=== PATIENT | male | born 1965 ===

== ENCOUNTER → 2020-06-07 10:46 | Outpatient (BNVA) | payer OTHER, SELFPAY | PROVIDERS: PCP Family Medicine; Referring Provider Family Medicine; Visit Provider Nurse Practitioner Family | DX: Z76.89 Persons encountering health services in other specified circumstances (principal) ==

== ENCOUNTER 2020-07-24 08:28 | Outpatient (REF) | payer OTHER, SELFPAY | END 2020-07-24 08:29 | disposition home or self-care (01) | LOC: HO.LAB 08:28 | PROVIDERS: Visit Provider Internal Medicine | DX: Z20.828 Contact with and (suspected) exposure to other viral communicable diseases (principal) | CPT/HCPCS: C9803; U0003 ==

== ENCOUNTER 2020-12-18 16:54 | Emergency (ER) | payer OTHER, SELFPAY ==
[2020-12-18 17:38] VITALS: BP 166/80; PULSE 88; RESP 16; TEMP 36.2; O2SAT 98; BMI 25.7
--- NOTE | 2020-12-18 19:35 | ED.GENADULT ---
HPI - General Adult General Chief complaint: Extremity Injury, Lower Stated complaint: FEET SWELLING Time Seen by Provider: 12/18/20 19:27 Source: patient Mode of arrival: ambulatory Limitations: no limitations History of Present Illness HPI narrative: Patient notices erythematous rash with slight swelling right lower extremity for last 2 weeks spreading to left lower extremity now. No history of any allergies in the past no fever or chills no hematuria bleeding from any place no history of injury Related Data Home Medications Medication Instructions Recorded Confirmed buprenorphine 8 mg-naloxone 2 mg 20 mg SUBLINGUAL DAILY 06/07/20 06/07/20 sublingual film naproxen 500 mg tablet 500 mg PO BID PRN 06/07/20 06/07/20 Previous Rx's Medication Instructions Recorded aspirin 81 mg tablet,delayed 81 mg PO DAILY #90 tab 06/07/20 release isosorbide mononitrate 60 mg 60 mg PO DAILY #90 tab 06/07/20 tablet,extended release 24 hr amlodipine 10 mg tablet 10 mg PO DAILY #90 tab 12/04/20 atorvastatin 80 mg tablet 80 mg PO BEDTIME 90 Days #90 tab 12/04/20 diphenhydramine HCl [Benadryl] 25 mg PO Q6H PRN #20 cap 12/18/20 prednisone 40 mg PO DAILY #10 tab 12/18/20 Allergies Allergy/AdvReac Type Severity Reaction Status Date / Time No Known Allergies Allergy Unverified 05/09/20 15:24 [No Known Allergies*] N.K.D.A. Allergy Unknown Uncoded 12/15/17 00:00 Review of Systems Review of Systems: Yes all other systems are reviewed and are negative [facility] Past Medical History Medical History CAD (coronary artery disease) HLD (hyperlipidemia) HTN (hypertension) Substance abuse or dependence Surgical History History of surgery on arm Hx of cardiac cath (~2017) Hx of colonoscopy (~2015) Family History Family History Father CVD (cardiovascular disease) Mother Diabetes Sister Diabetes Social History Social History Alcohol intake: never Smoking Status: Never smoker Tobacco Type: Cigarette Smoked in Last 30 Days: No Use of substances other than those prescribed or required for medical reasons: No Advance Directives: No Advance Directives Information Provided: Yes Physical Exam Vital Signs: Vital Signs: Last Vital Signs Temp 98.3 F 12/18/20 20:00 Pulse 75 12/18/20 20:00 Resp 16 12/18/20 20:00 BP 161/85 H 12/18/20 20:00 Pulse Ox 99 12/18/20 20:00 Body Mass Index 25.7 Const: General: healthy appearing and comfortable Orientation/consciousness: patient oriented x3 HENMT: Head: Yes normal to inspection and Yes normocephalic Eyes: General: appearance normal, both eyes and all related structures Neck: Neck: Yes normal visual inspection Resp: Effort & Inspection: normal respiratory effort Auscultation: clear to auscultation bilaterally Cardio: Palpation: normal PMI Rate: regular rate Rhythm: regular rhythm Heart sounds: S1 normal heart sound present and S2 normal heart sound present GI: Inspection: Yes normal to inspection Palpation (GI): Soft to palpation and nontender Auscultation: normal bowel sounds Neuro: General: patient oriented x3 Extrem: Upper/lower leg/hip images: 1. Erythematous rash right lower leg area no vesicular no open wound 2. Slight erythematous rash on the left leg also Medical Decision Making MDM Narrative Medical decision making narrative: Rash clinically contact dermatitis with local inflammation lab workup is negative will discharge patient home prednisone and Benadryl Lab Data Result diagrams: 12/18/20 20:22 12/18/20 20:22 Labs: Lab Results 12/18/20 12/18/20 12/18/20 Range/Units 20:22 20:22 20:22 WBC 7.6 (4.8-10.8) X10*3/uL RBC 4.63 (4.60-5.80) X10*6/uL Hgb 14.7 (14.0-18.0) g/dl Hct 41.0 L (42-52) % MCV 88.6 (80-98) fL MCH 31.7 (27.0-33.0) pg MCHC 35.9 (31.0-36.0) g/dl RDW 12.4 (11.0-16.0) % Plt Count 248 (160-400) X10*3/uL MPV 9.4 (9.4-12.4) fL Immature Gran % (Auto) 0.8 H (0.0-0.4) % Neut % (Auto) 61.7 (45-73) % Lymph % (Auto) 28.7 (20-40) % [place] % (Auto) 6.2 (2-11) % Eos % (Auto) 1.7 (0-4) % Baso % (Auto) 0.9 (0-2) % Lymph # (Auto) 2.2 (1.2-4.9) X10*3/uL [place] # (Auto) 0.5 (0.1-1.2) X10*3/uL Eos # (Auto) 0.1 (0.0-0.4) X10*3/uL Baso # (Auto) 0.1 (0.0-0.2) X10*3/uL Abs Immat Gran (auto) 0.06 H (0.00-0.03) X10*3/uL Absolute Neuts (auto) 4.7 (2.0-8.3) X10*3/uL Absolute Nucleated RBC 0.000 (0.0-0.012) X10*3/uL Nucleated RBC % (auto) 0.0 (0.0-0.2) /100WBC PT 12.5 (10.8-13.0) SEC INR 1.1 (0.9-1.1) APTT 36.3 (24.1-38.0) SEC Sodium 138 (135-145) mmol/L Potassium 4.1 (3.3-5.1) mmol/L Chloride 104 (96-108) mmol/L Carbon Dioxide 24 (22-29) mmol/L Anion Gap 14 (12-20) BUN 20 H (9-16) mg/dL Creatinine 1.09 (0.5-1.4) mg/dL Estim Creat Clear Calc 65.8 Estimated GFR > 60 Random Glucose 114 (60-115) mg/dL Calcium 9.9 (8.4-10.2) mg/dL B-Natriuretic Peptide (<100) pg/mL 12/18/20 Range/Units 20:22 WBC (4.8-10.8) X10*3/uL RBC (4.60-5.80) X10*6/uL Hgb (14.0-18.0) g/dl Hct (42-52) % MCV (80-98) fL MCH (27.0-33.0) pg MCHC (31.0-36.0) g/dl RDW (11.0-16.0) % Plt Count (160-400) X10*3/uL MPV (9.4-12.4) fL Immature Gran % (Auto) (0.0-0.4) % Neut % (Auto) (45-73) % Lymph % (Auto) (20-40) % [place] % (Auto) (2-11) % Eos % (Auto) (0-4) % Baso % (Auto) (0-2) % Lymph # (Auto) (1.2-4.9) X10*3/uL [place] # (Auto) (0.1-1.2) X10*3/uL Eos # (Auto) (0.0-0.4) X10*3/uL Baso # (Auto) (0.0-0.2) X10*3/uL Abs Immat Gran (auto) (0.00-0.03) X10*3/uL Absolute Neuts (auto) (2.0-8.3) X10*3/uL Absolute Nucleated RBC (0.0-0.012) X10*3/uL Nucleated RBC % (auto) (0.0-0.2) /100WBC PT (10.8-13.0) SEC INR (0.9-1.1) APTT (24.1-38.0) SEC Sodium (135-145) mmol/L Potassium (3.3-5.1) mmol/L Chloride (96-108) mmol/L Carbon Dioxide (22-29) mmol/L Anion Gap (12-20) BUN (9-16) mg/dL Creatinine (0.5-1.4) mg/dL Estim Creat Clear Calc Estimated GFR Random Glucose (60-115) mg/dL Calcium (8.4-10.2) mg/dL B-Natriuretic Peptide < 10 (<100) pg/mL Discharge Plan Discharge Clinical Impression: Dermatitis Patient Disposition: Home, Self-Care Instructions: Dermatitis (ED) Additional Instructions: Take medication as advised. Follow with PCP if not better Prescriptions: New prednisone 20 mg tablet 40 mg PO DAILY Qty: 10 RF: 0 diphenhydramine HCl [Benadryl] 25 mg capsule 25 mg PO Q6H PRN (Reason: itching) Qty: 20 RF: 0 No Action amlodipine 10 mg tablet 10 mg PO DAILY Qty: 90 RF: 1 atorvastatin 80 mg tablet 80 mg PO BEDTIME 90 Days Qty: 90 RF: 3 naproxen 500 mg tablet 500 mg PO BID PRNRF: 0 buprenorphine-naloxone 8-2 mg film 20 mg sublingual DAILY RF: 0 aspirin 81 mg tablet,delayed release (DR/EC) 81 mg PO DAILY Qty: 90 RF: 3 isosorbide mononitrate 60 mg tablet extended release 24 hr 60 mg PO DAILY Qty: 90 RF: 3 Interventions: ED Discharge Assessment Last Done: 12/18/20 21:46 Discharge Date/Time: 12/18/20 21:47
[2020-12-18 20:00] VITALS: BP 161/85; PULSE 75; RESP 16; TEMP 36.8; O2SAT 99
[2020-12-18 20:28] LABS: MANUAL DIFF FLAG NO
[2020-12-18 20:34] LABS: Basophils Absolute Auto 0.1 X10*3/uL (0.0-0.2); Basophils Percent Auto 0.9 % (0-2); Eosinophils Absolute Auto 0.1 X10*3/uL (0.0-0.4); Eosinophils Percent Auto 1.7 % (0-4); Hemoglobin 14.7 g/dl (14.0-18.0); Imm Gran Abs Auto 0.06 X10*3/uL (0.00-0.03); Imm Gran Pct Auto 0.8 % (0.0-0.4); Lymphocytes Absolute Auto 2.2 X10*3/uL (1.2-4.9); Lymphocytes Percent Auto 28.7 % (20-40); Mean Corpuscular HGB Conc 35.9 g/dl (31.0-36.0); Mean Corpuscular Hemoglobin 31.7 pg (27.0-33.0); Mean Corpuscular Volume 88.6 fL (80-98); Mean Platelet Volume 9.4 fL (9.4-12.4); Monocytes Absolute Auto 0.5 X10*3/uL (0.1-1.2); Monocytes Percent Auto 6.2 % (2-11); Neutrophils Absolute Auto 4.7 X10*3/uL (2.0-8.3); Neutrophils Percent Auto 61.7 % (45-73); Platelet Count 248 X10*3/uL (160-400); Red Blood Count 4.63 X10*6/uL (4.60-5.80); Red Cell Distribution Width 12.4 % (11.0-16.0); White Blood Count 7.6 X10*3/uL (4.8-10.8)
[2020-12-18 20:40] LABS: INTERNATIONAL NORM RATIO 1.1 (0.9-1.1); Prothrombin Time 12.5 SEC (10.8-13.0)
[2020-12-18 20:43] LABS: Partial Thromboplastin Time 36.3 SEC (24.1-38.0)
[2020-12-18 20:57] LABS: Anion Gap 14 (12-20); Blood Urea Nitrogen 20 mg/dL (9-16); Calcium 9.9 mg/dL (8.4-10.2); Carbon Dioxide 24 mmol/L (22-29); Chloride 104 mmol/L (96-108); Creatinine Clr Calc Pharmacy 65.8; Estimated Glomerular Filt Rate > 60; Glucose Random 114 mg/dL (60-115); Potassium 4.1 mmol/L (3.3-5.1); Sodium 138 mmol/L (135-145)
[2020-12-18 21:04] LABS: B Type Natriuretic Peptide < 10 pg/mL (<100)
[2020-12-18] MEDS: diphenhydrAMINE HCL 25 MG TABLET PO (21:19)
[2020-12-18] MEDS: predniSONE 20 MG TABLET 40 MG PO (21:19)
--- NOTE | 2020-12-18 21:20 | PC.NURSE ---
Medicated per OCT. Pt sitting upright on bed with family in NAD, speaking full sentences. Pt requesting discharge home at this time, aware. Continue to monitor.
== END 2020-12-18 21:47 | disposition home or self-care (01) ==
PROVIDERS: Emergency Provider Internal Medicine
DX: L30.9 Dermatitis, unspecified (principal); R60.0 Localized edema; Z79.899 Other long term (current) drug therapy; Z79.82 Long term (current) use of aspirin
CPT/HCPCS: 36415; 80048; 83880; 85025; 85610; 85730; 99284; Q0163

== ENCOUNTER 2024-10-06 10:00 | Outpatient (AMB) | payer OTHER, SELFPAY ==
--- NOTE | 2024-10-06 10:01 | A.OFFVIS_ITS ---
Vital Signs 10/06/24 10:13 Height 5 ft 5 in Weight 171 lb 15.369 oz BMI 28.6 BP 156/70 H Blood Pressure Location Rt brachial Position Sitting Pulse 74 Pulse Source Pulse Oximeter Pulse Oximetry (%) 96 Oxygen Delivery Method Room Air Intake Visit Reasons: Colonoscopy Screening Intake Note: NEW PATIENT for repeat colo screening. Routine. 2nd lifetime. Prior hx of colo/egd? [address] Ellis. Chief Complaint; Pt denies any GI concerns at this time. Correctional Medicine Physician Required: No Accompanied by: Self / Same As Patient Allergies No Known Allergies [No Known Allergies*] Allergy (Unverified 10/06/24 10:02) HPI HPI Colonoscopy Screening: Details: 58 year old? male with past medical history of CAD, hyperlipidemia, hypertension, hep C is here today for pre colonoscopy screening.? Patient was sent to us by his PCP.? Last colonoscopy in November of [address] Ellis.? Patient had stent placed in 2018, denies any shortness of breath with or without exertion or any chest pressure. Patient had rotator cuff surgery few months ago and did well with anesthesia. Patient denies any gastrointestinal symptoms in the past or at present.? Denies any personal or family history of gastrointestinal disease, colon polyps, or CRC.? Denies history of difficulty with sedation or anesthesia in the past.? Negative for history of sleep apnea.? Denies any history of cardiac, renal, pulmonary, or hepatic disease.?? History of hepatitis C, treated. Patient is on low-dose aspirin PFSH Medical History Substance abuse or dependence HTN (hypertension) HLD (hyperlipidemia) CAD (coronary artery disease) Surgical History History of rotator cuff surgery (~06/01/24) Hx of colonoscopy (~2015) History of surgery on arm Hx of cardiac cath (~2017) Family History Father CVD (cardiovascular disease) Mother Diabetes Sister Diabetes Social History Alcohol intake: never Review of Systems Const Denies weight gain and Denies weight loss ENT Reports no additional complaints, Denies dysphagia and Denies odynophagia Card Reports no additional complaints Resp Reports no additional complaints GI Denies abdominal pain, Denies belching, Denies melena, Denies bloating, Denies change in bowel habits, Denies dysphagia, Denies excessive flatus, Denies dyspepsia, Denies heartburn, Denies diarrhea, Denies loose stools, Denies nausea, Denies odynophagia and Denies vomiting Reports no additional complaints Musc Reports no additional complaints Neuro Reports no additional complaints Psych Reports no additional complaints Endo Reports no additional complaints Physical Exam Const General: healthy appearing, no acute distress and well developed Nutritional Appearance: well nourished Orientation/consciousness: patient oriented x3 Resp Effort & Inspection: normal respiratory effort, able to speak in complete sentences, no tracheal deviation and symmetric chest movement Auscultation: clear to auscultation bilaterally Cardio Rate: regular rate GI Inspection: Yes normal to inspection and No distended Palpation (GI): Soft to palpation, not firm, nontender and No hepatosplenomegaly present Auscultation: normal bowel sounds General: Yes no CVA tenderness Back/Spine/Pelvis Back: no CVA tenderness Skin General skin exam: elasticity normal, turgor normal and dry skin Neuro General: patient oriented x3 Psych Appearance: grossly normal Mental Status: mental status grossly normal Assessment & Plan Assessment & Plan (1) Screen for colon cancer: Code(s): Z12.11 - Encounter for screening for malignant neoplasm of colon Plan Patient denies any GI, cardiac or respiratory symptoms.? Denies any issues with anesthesia in the past.? Denies any history of sleep apnea.? No history infectious diseases in the past or present.? On low-dose aspirin.? No family or personal history of colon cancer or polyps.? Patient denies melena, hematochezia, unintentional weight loss or ribbon like stools.? Discussed at length the pre-procedure,? prep, diet & medications as well as what to expect prior, during and after the procedure.?? Stressed the importance of good bowel prep.? Recommended the use of Vaseline or Calmoseptine OTC & baby wipes with bowel movements to promote comfort.? ?Patient verbalizes understanding and agrees to plan of care.? He was given the opportunity to ask questions and all questions answered.? We will see him after the procedure.? Medications: New bisacodyl (Dulcolax (bisacodyl)) take 4 tabs at noon the day before your colonoscopy 20 mg (4 x 5 mg) PO ONCE 1 day 4 tabs 0RF Z12.11 - Encounter for screening for malignant neoplasm of colon polyethylene glycol 3350 (Miralax) As directed by gastroenterology department at [facility] 238 grams PO ONCE 238 grams 0RF Z12.11 - Encounter for screening for malignant neoplasm of colon Coding Level of Care Code New Pt Level 3 (02460) Diagnoses Screen for colon cancer Z12.11 Time Spent (min) 40 Comment 30 minutes spent with patient and additional 10 minutes spent reviewing his records
[2024-10-06 10:13] VITALS: BP 156/70; PULSE 74; O2SAT 96; BMI 28.6
--- OUTSIDE RECORDS SUMMARY | 2024-10-06 10:42 | XMS_ITS | Encounter Summary ---
Author Organization [facility] Address [address] [place] [address] Care Team Providers Care Field Sales Representative Name Role Phone Julia Mcdaniel Primary Care Provider + Reason for Visit * Rehabilitation - Outpatient (Routine) - Authorized Specialty Diagnoses / Procedures Referred By Renata aguilar Referred To Contact Occupational Therapy Diagnoses S/P left rotator cuff repair Farrukh Rider MD [address] [facility] [address] [place] [address] Phone: tel: fax: Referral ID Status Reason Start Date Expiration Date Visits Requested Visits Authorized [id number] Authorized Specialty Services Required 06/13/2025 21 21 Encounter Details Date Type Department Care Team (Late st Contact Info) Description 10/03/2024 11:15 AM EST [facility] [address] [facility] [address] [place] [phone] Hung Lamar, OT S/P left rotator cuff repair (Primary Dx) Social History Tobacco Use Types Packs/Day Years Used Date Smoking Tobacco: Former Cigarettes Q uit: 08/23/2018 Smokeless Tobacco: Never Alcohol Use Standard Drinks/Week Comments Yes 0 (1 standard drink = 0.6 oz pur e alcohol) Sex and Gender Information Value Date Recorded Sex Assigned at Not on file Legal Sex Male 11:14 PM EST Gender Identity Not on file Sexual Orientation Not on file documented as of this encounter Progress Notes * Hung Lamar OT - 10/03/2024 11:15 AM EST [facility] - Outpatient OCCUPATIONAL THERAPY DAILY TREATMENT NOTE Date: 10/03/2024 Visit Number: [id number] Patient Name: Clifford Yang : 1965 Age: 58 y.o. Gender: male Diagnosis: ICD-10-CM ICD-9-CM 1. S/P left rotator cuff repair Z98.890 V45.89 Date of Onset: 06/01/2024 Referring Provider: Farrukh Rider MD Insurance: [place] / [place] HEALTH SAFETY [place] / Product Type: *No Producttype* / Language: Speaks and understands Indonesian as preferred language with no technical maintenance specialist required Allergies: has No Known Allergies. Precautions: Phase 4 09/07/24 - 09/21/24 begin light resistance SUBJECTIVE Subjective Report: Its ok Pain: L sh 5/10 OBJECTIVE Pt able to manage personal items MOD I TREATMENT INTERVENTION Procedures: Pt performed L sh flexion standing with back to wall. Sidelying for scap mobs. Sidelying ER AROM Sh abd AROM in sidelying 10 reps AROM limited at end range, pt performed B sh flex in supine to increase range. Seated AROM B sh scaption. Standing B sh abd AROM . IR/ER with level 1 theraband. Hughstons on incline bench at approx 45* 2 X 10 reps Pain Reassessment: unchanged 5/10 Assessment/Response To Treatment: Good No increase in pain with therex Patient Education: Education provided: Yes Education Provided To: Patient utilizing Explanation and Demonstration mode(s) of education Response to Education: Good PLAN POC Development/Review: No Change in the Plan of Care; Participants: Patient Total Treatment Time: 45 Documentation completed by Hung Lamar OT documented in this encounter Plan of Treatment Upcoming Encounters Date Type Department Care Team (Late st Contact Info) Description 10/10/2024 1:15 PM EST Treatment [facility] Occupational Therapy [address] [place] [phone] Vanessa Adler COTA/L 10/12/2024 9:00 AM EST Treatment [facility] [address] [facility] [address] [place] [phone] FrancoisVanessa golden COTA/Barry 10/17/2024 11:00 AM EST Treatment [facility] [address] [facility] [address] [place] [phone] Vanessa Adler GAMBOA/L 10/19/2024 10:15 AM EST Treatment [facility] Occupational Therapy [address] [phone] Hung Lamar, OT 10/25/2024 11:00 AM EST Office Visit Internal Medicine - [place] [facility] [address] [place] [phone] Julia Mcdaniel PA [address] [facility] [address] [place] [address] 11/29/2024 11:30 AM EDT Office Visit Orthopedic Surgery - [place] 160 [facility] [address] [place] [phone] Farrukh Rider MD [address] [facility] [address] [place] [address] documented as of this encounter Goals Goal Patient Goal Type Associated Problems Recent Progress Patient-Stated? Author Pt goal General On track( 1:32 PM EST) Yes Hung Lamar, OT Note: I want to be pain free STG 6-8 visits General On track( 12:45 PM EST) No Hung Lamar, OT Note: Pt will report pain in L sh <= 4/10 - Not met, pt having increased pain Pt to have scaption PROM >= 85 deg for increased ease of bathing - Met Pt to begin strengthening as per protocol- performing A/AROM, progressing Pt to perform initial HEP MOD I - Met Pt to have QD score <= 80 - Met Pt will demo L sh scaption A/AROM 125 for increased ease of dressing - Met Pt will perform upgraded HEP MOD I - Met Pt will report QD score <= 75 - Not met Pt will perform HEP, as it progresses MOD I LTG 20 visits General On track( 025 1:32 PM EST) Hung Méndez, OT Note: Pt will report pain in L sh <= 1/10 Pt to have AROM sh flex WFL to perform ADLs/IADLs Pt to have >= 40# graphic artist to be able to perform yard work Pt to perform HEP MOD I Pt will demo improved fx'l use as evidenced by a QD score of <= 30 to be able to cook documented as of this encounter Visit Diagnoses Diagnosis S/P left rotator cuff repair- Primary documented in this encounter Care Teams Field Sales Representative Relationship Specialty Start Date End Date Julia Mcdaniel PA [address] [place] [address] PCP - General Primary Care 07/03/24 documented as of this encounter
--- OUTSIDE RECORDS SUMMARY | 2024-10-06 10:42 | XMS_ITS | Encounter Summary ---
Author Organization [employer] Address [address] [place] [address] [address] [place] [address] Care Team Providers Care Software Systems Engineer Name Role Phone Roger Paul Primary Care Provider Unavail able Reason for Visit * Reason Comments Med Refill Encounter Details Date Type Department Care Team ([facility] st Contact Info) Description 02/08/2023 Refill [facility] MEDICINE [address] [place] [address] Kaela Lam MD [address] [place] [address] Uncomplicated opioid dependence (CMS/HCC) Social History Tobacco Use Types Packs/Day Years Used Date Smoking Tobacco: Every Day Cigarettes Sex and Gender Information Value Date Recorded Sex Assigned at Male 06/22/2022 10:14 AM EDT Legal Sex Male 10:14 AM EDT Gender Identity Male 06/22/2022 10:14 AM EDT Sexual Orientation Straight 06/22/2022 10 :14 AM EDT documented as of this encounter Plan of Treatment Not on file documented as of this encounter Visit Diagnoses Diagnosis Uncomplicated opioid dependence (CMS/HCC) documented in this encounter Care Teams Software Systems Engineer Relationship Specialty Start Date End Date Roger Paul AGNP PCP - General Family Medicine 06/02/22 04/28/23 documented as of this encounter
--- OUTSIDE RECORDS SUMMARY | 2024-10-06 10:42 | XMS_ITS | Encounter Summary ---
Author Organization [facility] Address [address] [place] [address] Care Team Providers Care Marine Painter Name Role Phone Julia Mcdaniel Primary Care Provider + Reason for Visit * Rehabilitation - Outpatient (Routine) - Authorized Specialty Diagnoses / Procedures Referred By Renata aguilar Referred To Contact Occupational Therapy Diagnoses S/P left rotator cuff repair Farrukh Rider MD 175 [facility] [address] [place] [address] Phone: tel: fax: Referral ID Status Reason Start Date Expiration Date Visits Requested Visits Authorized [id number] Authorized Specialty Services Required 06/13/2025 21 21 Encounter Details Date Type Department Care Team (Late st Contact Info) Description 09/19/2024 12:30 PM EST [facility] 175 [facility] [address] [place] [address] Hung Lamar, OT S/P left rotator cuff [...] of this encounter Progress Notes * Hung Lamar, OT - 09/19/2024 12:30 PM EST Images from the original note were not included. [facility] - Outpatient OCCUPATIONAL THERAPY Progress Summary Date: 09/19/2024 Visit Number: 11 Patient Name: Clifford Yang : 1965 Age: 58 y.o. Gender: male Diagnosis: ICD-10-CM ICD-9-CM 1. S/P left rotator cuff repair Z98.890 V45.89 Date of Onset: 06/01/2024 Referring Provider: Farrukh Rider MD Insurance: Payor: [employer] PLAN / Plan: WELLSENSE MEDICAID / Product Type: *No Product type* / Language: Speaks and understands Malagasy as preferred language with no csr technician required Medications: Current Outpatient Medications on File Prior to Visit Medication Sig Dispense Refill acetaminophen (TYLENOL) 500 mg tablet Take 1 Tablet by mouth every 6 hours as needed. amLODIPine (NORVASC) 10 mg tablet TAKE 1 TABLET BY MOUTH EVERY DAY aspirin 81 mg chewable tablet CHEW 1 TABLET BY MOUTH EVERY DAY atorvastatin (LIPITOR) 80 mg tablet TAKE 1 TABLET BY MOUTH EVERY DAY 90 tablet 3 cholecalciferol (VITAMIN D-3) 50 mcg (2,000 unit) capsule TAKE 1 CAPSULE BY MOUTH EVERY DAY ibuprofen (ADVIL,MOTRIN) 800 mg tablet Take 1 Tablet by mouth every 8 hours as needed. isosorbide mononitrate (IMDUR) 60 mg 24 hr tablet TAKE 1 TABLET BY MOUTH EVERY DAY 90 tablet 2 losartan-hydroCHLOROthiazide (HYZAAR) 50-12.5 mg per tablet Take 1 Tablet by mouth daily for 360 days. meloxicam (MOBIC) 15 mg tablet Take 1 tablet (15 mg total) by mouth 1 (one) time each day. (Patientnot taking: Reported on 08/02/2024) 30 tablet 2 oxyCODONE-acetaminophen (PERCOCET) 5-325 mg per tablet Take 1 Tablet by mouth every 4 hours as needed. (Patient not taking: Reported on 08/02/2024) No current facility-administered medications on file prior to visit. Allergies: has No Known Allergies. Precautions: Phase 4 09/07/24 - 09/21/24 begin light resistance SUBJECTIVE Subjective Report: I use heat every other day Pain: L sh and down upper arm 5/10 OBJECTIVE OT Shoulder ROM: Right Left AROM PROM SHOULDER AROM PROM WNL WNL Flexion 115 125 WNL WNL Scaption 120 130 WNL WNL Abduction 115 125 External 10 20 Rotation OT Elbow/forearm ROM Right Left AROM PROM ELBOW/ FOREARM AROM PROM WNL WNL Extension WNL WNL WNL WNL Flexion WNL WNL WNL WNL Pronation WNL WNL WNL WNL Supination WNL WNL OT Wrist ROM Right Left AROM PROM WRIST AROM PROM WNL WNL Extension WNL WNL WNL WNL Flexion WNL WNL Other Assessments: QuickDASH - Disability of Arm, Shoulder, or Hand Rate your ability to do the following activities in the past week: Open a tight or new jar: 5 - Unable Do heavy librarian (eg wash augustine, wash floors) : 4 - Severe difficulty Carry a shopping bag or briefcase : 5 - Unable Wash your back : 5 - Unable Use a knife to cut food: 4 - Severe difficulty Recreational activities in which you take some force or impact through your arm, shoulder or hand (eg golf, hammering, tennis, etc) : 5 - Unable During the past week, to what extent has your arm, shoulder or hand problem interfered with your normal social activities with family, friends, neighbours or groups? : 4 - Quite a bit During the past week, were you limited in your work or other regular daily activities as a result of your arm, shoulder or hand problem? : 5 - Unable Rate the severity of the following symptoms in the last week: Arm, shoulder or hand pain : 5 - Extreme Tingling (pins and needles) in your arm, shoulder or hand : 5 - Extreme During the past week, how much difficulty have you had sleeping because of the pain in your arm, shoulder or hand? : 5 - So much difficulty I can't sleep QuickDASH Score QuickDASH Score: 93.18 Classification: Severe Disability TREATMENT INTERVENTION Procedures: Therapeutic Exercise: MHP prior to session, no charge Pt performed L sh flexion standing with back to wall. Sidelying for scap mobs. Sidelying ER AROM Sh abd AROM in sidelying 10 reps AROM limited at end range, pt performed B sh flex in supine to increase range. Seated AROM B sh scaption. Standing B sh abd AROM . IR/ER with level 1 theraband. Demarcusjulian on incline bench at approx 45* 2 X 10 reps Pt declined ice at end of session Pain Reassessment: Increased slightly to 01/30 Assessment/Response To Treatment: Good Improved AROM GOALS Goals Addressed This Visit's Progress LTG 20 visits On track Pt will report pain in L sh <= 1/10 Pt to have AROM sh flex WFL to perform ADLs/IADLs Pt to have >= 40# chemistry tutor to be able to perform yard work Pt to perform HEP MOD I Pt will demo improved fx'l use as evidenced by a QD score of <= 30 to be able to cook Pt goal (pt-stated) On track I want to be pain free STG 6-8 visits On track Pt will report pain in L sh [...] perform HEP, as it progresses MOD I Patient Education: Education provided: Yes Education Provided To: Patient utilizing Explanation and Demonstration mode(s) of education Response to Education: Good PLAN POC Development/Review: No Change in the Plan of Care; Participants: Patient Total Treatment Time: 45 Documentation completed by Hung Lamar OT PATIENT NAME: Clifford Yang : 1965 documented in this encounter Plan of Treatment Upcoming Encounters Date Type Department Care Team (Late st Contact Info) Description 10/10/2024 1:15 PM EST Treatment [facility] [address] [phone] Vanessa Adler COTA/L 10/12/2024 9:00 AM EST Treatment [facility] [address] [phone] Vanessa Adler COTA/L 10/17/2024 11:00 AM EST Treatment [facility] Occupational Therapy [address] [place] [address] Vanessa Adler COTA/Barry 10/19/2024 10:15 AM EST Treatment [facility] Occupational Therapy [address] [facility] [address] [place] [phone] Hung Lamar, OT 10/25/2024 11:00 AM EST Office Visit Internal Medicine - [place] [address] [place] [phone] Julia Mcdaniel PA 175 [facility] [address] [place] [address] 11/29/2024 11:30 AM EDT Office Visit Orthopedic Surgery - [place] 160 175 [facility] [address] [place] [phone] Farrukh Rider MD 175 [facility] [address] [place] [address] documented as of this encounter Goals Goal Patient Goal Type Associated Problems Recent Progress Patient-Stated? Author Pt goal General On track( 025 1:32 PM EST) Yes Hung Lamar, OT Note: I want to be pain free STG 6-8 visits General On track( 025 12:45 PM EST) No Hung Lamar, OT [...] perform ADLs/IADLs Pt to have >= 40# chemistry tutor to be able to perform yard work Pt to perform HEP MOD I Pt will demo improved fx'l use as evidenced by a QD score of <= 30 to be able to cook documented as of this encounter Visit Diagnoses Diagnosis S/P left rotator cuff repair- Primary documented in this encounter Care Teams Marine Painter Relationship Specialty Start Date End Date Julia Mcdaniel PA [address] [place] [address] PCP - General Primary Care 07/03/24 documented as of this encounter
--- OUTSIDE RECORDS SUMMARY | 2024-10-06 10:42 | XMS_ITS | Encounter Summary ---
Author Organization [employer] Address [address] [place] [address] 7 [place] [address] Care Team Providers Care Chauffeur Name Role Phone Roger Paul Primary Care Provider Unavail able Reason for Visit * Reason Comments Med Refill Encounter Details Date Type Department Care Team ([facility] st Contact Info) Description 04/08/2023 Refill [facility] [address] [place] [address] Kaela Lam MD [address] [place] [address] Uncomplicated opioid dependence (CMS/HCC) Social History Tobacco [...] (CMS/HCC) documented in this encounter Care Teams Chauffeur Relationship Specialty Start Date End Date Roger Paul AGNP PCP - General Family Medicine 06/02/22 04/28/23 documented as of this encounter
--- OUTSIDE RECORDS SUMMARY | 2024-10-06 10:42 | XMS_ITS | Encounter Summary ---
Author Organization [employer] Address [address] [place] [address] 7 [place] [address] Care Team Providers Care Ap Operator Name Role Phone Unavailable Primary Care Provider Unavailabl e Reason for Visit * Reason Comments Med Refill Encounter Details Date Type Department Care Team ([facility] st Contact Info) Description 06/03/2023 Refill [facility] [address] [place] [address] Kaela Lam MD [address] [place] [address] Uncomplicated opioid dependence (CMS/HCC) Social History Tobacco [...]
--- OUTSIDE RECORDS SUMMARY | 2024-10-06 10:42 | XMS_ITS | Encounter Summary ---
Author [facility] Address [address] [place] [address] Care Team Providers Care Ese Teacher Name Role Phone Julia Mcdaniel Primary Care Provider + Reason for Visit * Rehabilitation - Outpatient (Routine) - Authorized Specialty Diagnoses / Procedures Referred By Renata aguilar Referred To Contact Occupational Therapy Diagnoses S/P left rotator cuff repair Farrukh Rider MD 175 [facility] [address] [place] [address] Phone: tel: fax: Referral ID Status Reason Start Date Expiration Date Visits Requested Visits Authorized [id number] Authorized Specialty Services Required 06/13/2025 21 21 Encounter Details Date Type Department Care Team (Late st Contact Info) Description 09/14/2024 11:15 AM EST Treatment [facility] 175 [facility] [address] [place] [address] Hung Lamar, OT S/P left rotator cuff [...] Progress Notes * Hung Lamar OT - 09/14/2024 11:15 AM EST [facility] - Outpatient OCCUPATIONAL THERAPY DAILY TREATMENT NOTE Date: 09/14/2024 Visit Number: 10 Patient Name: Clifford Yang : 1965 Age: 58 y.o. Gender: male Diagnosis: ICD-10-CM ICD-9-CM 1. S/P left rotator cuff repair Z98.890 V45.89 Date of Onset: 06/01/2024 Referring Provider: Farrukh Rider MD Insurance: Payor: [employer] PLAN / Plan: WELLSENSE MEDICAID / Product Type: *No Product type* / Language: Speaks and understands Australian as preferred language with no sound effects technician required Allergies: has No Known Allergies. Precautions: Phase 4 09/07/24 - 09/21/24 begin light resistance SUBJECTIVE Subjective Report: I've had pain for 4 years, I'm getting tired of it Pain: L sh, L upper arm 10 OBJECTIVE Pt able to manage personal items Mod I TREATMENT INTERVENTION Procedures: Therapeutic Exercise: MHP prior to session, no charge Pt performed L sh flexion standing with back to wall. Seated AROM B sh scaption. Standing B sh abd AROM. AROM limited at end range, pt performed B sh flex in supine to increase range. Sidelying ER AROM. IR/ER with level 1 theraband. Did not Attempt Hughasmitas ithis session Educated re: heat prior to there ex, ice after Pain Reassessment: unchanged Assessment/Response To Treatment: Good Therex does not increase pain Patient Education: Education provided: Yes Education Provided [...] Info) Description 10/10/2024 1:15 PM EST Treatment [facility] Occupational Therapy [address] [place] [phone] Vanessa Adler COTA/L 10/12/2024 9:00 AM EST Treatment [facility] 175 [facility] [address] [place] [phone] FrancoischantelPaulineshashank GAMBOA/L 10/17/2024 11:00 AM EST Treatment [facility] 175 [facility] [address] [place] [phone] FrancoischantelPaulineshashank GAMBOA/L 10/19/2024 10:15 AM EST Treatment [facility] [address] [phone] Hung Lamar, OT 10/25/2024 11:00 AM EST Office Visit Internal Medicine - [place] 175 [facility] [address] [place] [phone] Julia Mcdaniel PA 175 [facility] 200 [place] [address] 11/29/2024 11:30 AM EDT Office Visit Orthopedic Surgery [facility] 160 175 [facility] 160 [place] [phone] Farrukh Rider MD 175 [facility] [address] [place] [address] documented as of this encounter Goals Goal [...] perform ADLs/IADLs Pt to have >= 40# procurement agent to be able to perform yard work Pt to perform HEP MOD I Pt will demo improved fx'l use as evidenced by a QD score of <= 30 to be able to cook documented as of this encounter Visit Diagnoses Diagnosis S/P left rotator cuff repair- Primary documented in this encounter Care Teams Ese Teacher Relationship Specialty [place] [address] [place] [address] PCP - General Primary Care 07/03/24 documented as of this encounter
--- OUTSIDE RECORDS SUMMARY | 2024-10-06 10:42 | XMS_ITS | Encounter Summary ---
[facility] Address [address] [place] [address] Care Team Providers Care Parish Nurse Name Role Phone Julia Mcdaniel Primary Care Provider + Encounter Details Date Type Department Care Team (Late Contact Info) Description 10/05/2024 Telephone Internal Medicine - [place] [address] [facility] [address] [place] [phone] Julia Mcdaniel PA [address] [facility] [address] [facility] [address] [place] [address] Social History Tobacco Use Types Packs/Day Years [...] on file documented as of this encounter Plan of Treatment Upcoming Encounters Date Type Department Care Team (Late Contact Info) Description 10/10/2024 1:15 PM EST Treatment [facility] [address] [phone] Vanessa Adler COTA/L 10/12/2024 9:00 AM EST Treatment [facility] [address] [phone] Vanessa Adler GAMBOA/L 10/17/2024 11:00 AM EST Treatment [facility] Occupational Therapy [address] [place] [address] Vanessa Adler GAMBOA/L 10/19/2024 10:15 AM EST Treatment [facility] Occupational Therapy 175 [facility] [address] [place] [phone] Hung Lamar, OT 10/25/2024 11:00 AM EST Office Visit Internal Medicine - [place] [address] [place] [address] Julia Mcdaniel PA 175 [facility] [address] [place] [address] 11/29/2024 11:30 AM EDT Office Visit Orthopedic Surgery - [place] 160 175 [facility] [address] [place] [phone] Farrukh Rider MD 175 [facility] [address] [place] [address] documented as of this encounter Goals Goal [...] perform ADLs/IADLs Pt to have >= 40# front desk attendant to be able to perform yard work Pt to perform HEP MOD I Pt will demo improved fx'l use as evidenced by a QD score of <= 30 to be able to cook documented as of this encounter Visit Diagnoses Not on filedocumented in this encounter Care Teams Parish Nurse Relationship Specialty [place] [address] [place] [address] PCP - General Primary Care 07/03/24 documented as of this encounter
--- OUTSIDE RECORDS SUMMARY | 2024-10-06 10:42 | XMS_ITS | Encounter Summary ---
[facility] Address [address] [place] [address] Care Team Providers Care Fan Engine Engineer Name Role Phone Julia Mcdaniel Primary Care Provider + Reason for Visit * Rehabilitation - Outpatient (Routine) - Authorized Specialty Diagnoses / Procedures Referred By Renata aguilar Referred To Contact Occupational Therapy Diagnoses S/P left rotator cuff repair Farrukh Rider MD 175 [facility] [address] [place] [address] Phone: tel: fax: Referral ID Status Reason Start Date Expiration Date Visits Requested Visits Authorized [id number] Authorized Specialty Services Required 06/13/2025 21 21 Encounter Details Date Type Department Care Team (Late st Contact Info) Description 09/07/2024 11:15 AM EST [facility] 175 [facility] [address] [place] [phone] Hung Lamar, OT S/P left rotator cuff [...] Progress Notes * Hung Lamar OT - 09/07/2024 11:15 AM EST [facility] - Outpatient OCCUPATIONAL THERAPY DAILY TREATMENT NOTE Date: 09/07/2024 Visit Number: 9 Patient Name: Clifford Yang : 1965 Age: 58 y.o. Gender: male Diagnosis: ICD-10-CM ICD-9-CM 1. S/P left rotator cuff repair Z98.890 V45.89 Date of Onset: 06/01/2024 Referring Provider: Farrukh Rider MD Insurance: Payor: [employer] PLAN / Plan: WELLSENSE MEDICAID / Product Type: *No Product type* / Language: Speaks and understands Bahamian as preferred language with no almond grinder required Allergies: has No Known Allergies. Precautions: Phase 4 09/07/24 - 09/21/24 begin light resistance SUBJECTIVE Subjective Report: I see the doctor in November Pain: L sh 7/10 OBJECTIVE Pt able to manage personal items Independently TREATMENT INTERVENTION Procedures: Therapeutic Exercise: Begin new phase this date. Added light theraband Pt performed L sh flexion standing with back to wall. Seated AROM B sh scaption. Standing B sh abd AROM. AROM limited at end range, pt performed B sh flex in supine to increase range. Sidelying ER AROM. IR/ER with level 1 theraband. Attempted Hughstons in prone but pt unable due to discomfort Educated re: heat prior to there ex, ice after Pain Reassessment: unchanged Assessment/Response To Treatment: Good Tolerated light resistance Patient Education: Education provided: Yes Education Provided To: Patient utilizing Explanation and Demonstration mode(s) of education Response to Education: Good PLAN POC Development/Review: No Change in the Plan of Care; Participants: Patient Equipment Provided: level 1 theraband Total Treatment Time: 45 Documentation completed by Hung Lamar OT documented in this encounter Plan of Treatment Upcoming Encounters Date Type Department Care Team (Late st Contact Info) Description 10/10/2024 1:15 PM EST Treatment [facility] Occupational Therapy [address] [place] [phone] Vanessa Adler COTA/L 10/12/2024 9:00 AM EST Treatment [facility] [address] [place] [phone] Pauline Adlershashank GAMBOA/Barry 10/17/2024 11:00 AM EST [facility] [address] [place] [phone] Vanessa Adler GAMBOA/L 10/19/2024 10:15 AM EST Treatment [facility] Occupational Therapy [address] [phone] Hung Lamar, OT 10/25/2024 11:00 AM EST Office Visit Internal Medicine [facility] 175 [facility] 200 [place] [phone] Julia Mcdaniel PA 175 [facility] 200 [place] [address] 11/29/2024 11:30 AM EDT Office Visit Orthopedic Surgery [facility] 160 175 [facility] 160 [place] [address] Farrukh Rider MD [address] [address] documented as of this encounter Goals Goal [...] perform ADLs/IADLs Pt to have >= 40# staff forester to be able to perform yard work Pt to perform HEP MOD I Pt will demo improved fx'l use as evidenced by a QD score of <= 30 to be able to cook documented as of this encounter Visit Diagnoses Diagnosis S/P left rotator cuff repair- Primary documented in this encounter Care Teams Fan Engine Engineer Relationship Specialty [place] [address] [place] [address] PCP - General Primary Care 07/03/24 documented as of this encounter
--- OUTSIDE RECORDS SUMMARY | 2024-10-06 10:42 | XMS_ITS | Clinical Summary ---
Author Organization [email or web address] Address [address] [place] [address] [address] [place] [address] Care Team Providers Care Shopper Marketing Manager Name Role Phone Unavailable Primary Care Provider Unavailabl e Allergies No known active allergies Medications amLODIPine (Norvasc) 10 MG tablet Take 10 mg by mouth in the morning. 2 Active Aspirin Low Dose 81 MG chewable tablet Chew 81 mg in the morning. 2 Active D3 Super Strength 50 MCG (1999 UT) capsule Take 50 mcg by mouth in the morning. 2 Active isosorbide mononitrate ER (Imdur) 60 MG 24 hr tablet Take 60 mg by mouth in the morning. 2 Active losartan (Cozaar) 50 MG tablet Take 50 mg by mouth in the morning. 2 Active meloxicam (Mobic) 15 MG tablet TAKE 1 TABLET BY MOUTH DAILY NEEDED FOR PAIN. TAKE WITH GOOD. 3 Active methylPREDNISolo ne (Medrol Dospak) 4 MG tablets TAKE 6 TABLETS ON DAY 1 DIRECTED ON PACKAGE AND DECREASE BY 1 TAB EACH DAY FOR A TOTAL OF 6 DAYS 2 Active tiZANidine (Zanaflex) 4 MG tablet TAKE 1 TABLET BY MOUTH AT BEDTIME NEEDED FOR MUSCLE SPASMS. 3 Active varenicline (Chantix) 1 MG tabletIndication s:Tobacco dependence TAKE 1 TABLET BY MOUTH TWICE DAILY TAKE WITH FULL GLASS OF WATER 60 tablet 5 3 Active Buprenorphine HCl-Naloxone HCl (Suboxone) 8-2 MG SL filmIndications: Uncomplicated opioid dependence (CMS/HCC) Place 2 Film under the tongue Once per day. 56 Film 1 4 Active Active Problems Problem Noted Date Diagnosed Date Snoring 07/14/2021 Overview (10/01/2022): 06/2021 Home Sleep Study did not reveal sleep apnea or nocturnal hypoxia. Carotid bruit 07/09/2021 Edema 03/20/2021 Venous insufficiency 03/20/2021 Vitamin D deficiency 01/29/2021 Coronary arteriosclerosis 01/23/2021 Hyperlipidemia 01/23/2021 Opiate dependence 01/23/2021 Overview (10/01/2022): on suboxone since 2007 Arthritis of hand 06/29/2018 Chest pain on exertion 06/29/2018 Essential hypertension 06/29/2018 Social History Tobacco Use Types Packs/Day Years Used Date Smoking Tobacco: Every Day Cigarettes Tobacco Cessation:Ready to Q uit: Yes; Counseling Given: Yes Sex and Gender Information Value Date Recorded Sex Assigned at Male 06/22/2022 10:14 AM EDT Legal Sex Male 10:14 AM EDT Gender Identity Male 06/22/2022 10:14 AM EDT Sexual Orientation Straight 06/22/2022 10 :14 AM EDT Last Filed Vital Signs Vital Sign Reading Time Taken Comments Blood Pressure 152/67 01/22/2022 12:06 AM EDT Pulse 91 01/22/2022 12:06 AM EDT Temperature - - Respiratory Rate - - Oxygen Saturation - - Inhaled Oxygen Concentration - - Weight 75 kg (165 lb 6.4 oz) 01/22/2022 12:06 AM EDT Height 168.9 cm (5' 6.5 ) 01/22/2022 12:06 AM ED T Body Mass Index 26.3 01/22/2022 12:06 AM EDT Plan of Treatment Health Maintenance Due Date Last Done Comments CT Colonography 1965 Colonoscopy 1965 Colorectal Cancer Screening 1965 Depression Screening 1965 FIT DNA/Cologuard 1965 FIT 1964 FOBT 1965 HIV Screening 1965 Lipid Panel 1964 SDOH Screening 1965 Sigmoidoscopy 1964 Pneumococcal Vaccine: Pediatrics (0 to 5 Years) and At-Risk Patients (6 to 49) Years) (1 of 2 - PCV) 1970 Alcohol/Substance Use Screening 1976 Hepatitis A Vaccines (1 of 2 - Risk 2-dose series) 1983 Hepatitis B Vaccines (1 of 3 - 19+ 3-dose series) 1983 Pneumococcal Vaccine: 50+ Years (1 of 2 - PCV) 1983 Zoster Vaccines (1 of 2) 2014 Tobacco Screening 10/30/2023 10/29/2022 COVID-19 Vaccine (3 - 2023-2 5 season) 2024 01/23/2021, 12/26/2020 Influenza Vaccine (#1) 2024 DTaP/Tdap/Td Vaccines (2 - T d or Tdap) 06/29/2028 06/29/2018 RSV Patients and Patients Aged 60 years or older (1 - 1-dose 75+ series) 2039 HIB Vaccines Aged Out No longer eligi ble based on patient's age to complete this topic HPV Vaccines Aged Out No longer eligi ble based on patient's age to complete this topic IPV Vaccines Aged Out No longer eligi ble based on patient's age to complete this topic Meningococcal Vaccine Aged Out No king chantelle eligible based on patient's age to complete this topic RSV under 20 months Aged Out No longe r eligible based on patient's age to complete this topic Rotavirus Vaccines Aged Out No longer eligible based on patient's age to complete this topic Insurance [employer] PPO
--- OUTSIDE RECORDS SUMMARY | 2024-10-06 10:42 | XMS_ITS | Encounter Summary ---
Author Organization [facility] Address [address] [place] [address] Care Team Providers Care Wood Pile Driver Operator Name Role Phone Julia Mcdaniel Primary Care Provider + Encounter Details Date Type Department Care Team (Late st Contact Info) Description 06/08/2024 4:54 PM EDT Hospital Encounter TH HISTORIC ENCOUNTERS EASTERN CONVERSION ONLY Farrukh Rider MD 175 [facility] 160 [place] [address] Social History Tobacco Use Types Packs/Day Years [...] PM EST Treatment [facility] 175 [facility] [address] [place] [phone] Vanessa Adler COTA/Barry 10/12/2024 9:00 AM EST Treatment [facility] [address] [phone] Vanessa Adler COTA/Barry 10/17/2024 11:00 AM EST Treatment [facility] [address] [place] [address] Vanessa AdlerDENNISA/Barry 10/19/2024 10:15 AM EST [facility] [address] [place] [phone] Hung Lamar, OT 10/25/2024 11:00 AM EST Office Visit Internal Medicine - [place] [address] [place] [phone] Julia Mcdaniel PA 175 [facility] 200 [place] [address] 11/29/2024 11:30 AM EDT Office Visit Orthopedic Surgery - [place] 160 175 [facility] 160 [place] [phone] Farrukh Rider MD 175 [facility] 160 [place] [address] documented as of this encounter Goals Goal [...] General On track( 025 1:32 PM EST) No Hung Lamar, OT Note: Pt will report pain in L sh <= 1/10 Pt to have AROM sh flex WFL to perform ADLs/IADLs Pt to have >= 40# process controls technician to be able to perform yard work Pt to perform HEP MOD I Pt will demo improved fx'l use as evidenced by a QD score of <= 30 to be able to cook documented as of this encounter Visit Diagnoses Not on filedocumented in this encounter Care Teams Wood Pile Driver Operator Relationship Specialty Start Date End Date Julia Mcdaniel PA PCP - General Internal Medicine 04/07/21 07/02/24 documented as of this encounter
--- OUTSIDE RECORDS SUMMARY | 2024-10-06 10:42 | XMS_ITS | Encounter Summary ---
Author [facility] Address [address] [place] [address] Care Team Providers Care Airframe Technician Name Role Phone Julia Mcdaniel Primary Care Provider + Reason for Visit * Rehabilitation - Outpatient (Routine) - Authorized Specialty Diagnoses / Procedures Referred By Renata aguilar Referred To Contact Occupational Therapy Diagnoses S/P left rotator cuff repair Farrukh Rider MD 175 [facility] 160 [place] [address] Phone: tel: fax: Referral ID Status Reason Start Date Expiration Date Visits Requested Visits Authorized [id number] Authorized Specialty Services Required 06/13/2025 21 21 Encounter Details Date Type Department Care Team (Late st Contact Info) Description 09/21/2024 11:00 AM EST [facility] 175 [facility] 350 [place] [phone] Vanessa Adler COTA/Barry S/P left rotator cuff repair (Primary Dx) [...] as of this encounter Progress Notes * ROBERTO Arteaga - 09/21/2024 11:00 AM EST [facility] - Outpatient OCCUPATIONAL THERAPY DAILY TREATMENT NOTE Date: 09/21/2024 Visit Number: [id number] Patient Name: Clifford Yang : 1965 Age: 58 y.o. Gender: male Diagnosis: No diagnosis found. Date of Onset: 06/01/2024 Referring Provider: Farrukh Rider MD Insurance: Payor: [employer] / Plan[facility] / Product Type: *No Product type* / Medications: Current Outpatient Medications on File Prior [...] 09/21/24 begin light resistance SUBJECTIVE Subjective Report: the heat feels good Chart Reviewed: Yes Pain: 5 TREATMENT INTERVENTION Procedures: Therapeutic Exercise: MHP prior to session while using UE ranger Pt performed L sh flexion standing with back to wall. Sidelying for scap mobs. Sidelying ER AROM Sh abd AROM in sidelying 10 reps AROM limited at end range, pt performed B sh flex in supine to increase range. Seated AROM B sh scaption. Standing B sh abd AROM . IR/ER with level 1 theraband. Demarcuss on incline bench at approx 45* 2 X 10 reps -reaching upwards to place weighted clips on elevated surface. - ROM arch for increased ROM Pt declined ice at end of session Assessment/Response To Treatment: Good Patient required increased rest breaks due to increased pain. Pain decreases with rest. Patient Education: Education provided: Yes Education Provided To: Patient utilizing Explanation mode(s) of education Response to Education: Good PLAN POC Development/Review: No Change in the Plan of Care; Participants: Patient Equipment Recommended: none; Equipment Provided: none Total Treatment Time: 45 TOTAL TREATMENT TIME: 45 Minutes Documentation completed by ROBERTO Arteaga documented in this encounter Plan of Treatment Upcoming Encounters Date Type Department Care Team (Late st Contact Info) Description 10/10/2024 1:15 PM EST Treatment [facility] [address] [place] [phone] Vanessa Adler COTA/L 10/12/2024 9:00 AM EST Treatment [facility] [address] [phone] Vanessa Adler COTA/Barry 10/17/2024 11:00 AM EST Treatment [facility] [address] [phone] Vanessa Adler COTA/L 10/19/2024 10:15 AM EST Treatment [facility] [address] [phone] Hung Lamar OT 10/25/2024 11:00 AM EST Office Visit Internal Medicine - [place] [address] [phone] Julia Mcdaniel PA [address] [address] 11/29/2024 11:30 AM EDT Office Visit Orthopedic Surgery - [place] 160 175 [facility] [address] [place] [phone] Farrukh Rider MD 175 [facility] 160 [place] [address] documented as of this encounter Goals Goal [...] I LTG 20 visits General On track( 1:32 PM EST) No Hung Lamar, OT Note: Pt will report pain in L sh <= 1/10 Pt to have AROM sh flex WFL to perform ADLs/IADLs Pt to have >= 40# curriculum designer to be able to perform yard work Pt to perform HEP MOD I Pt will demo improved fx'l use as evidenced by a QD score of <= 30 to be able to cook documented as of this encounter Visit Diagnoses Diagnosis S/P left rotator cuff repair- Primary documented in this encounter Care Teams Airframe Technician Relationship Specialty Start Date End Date Julia Mcdaniel PA [address] [place] [address] PCP - General Primary Care 07/03/24 documented as of this encounter
--- OUTSIDE RECORDS SUMMARY | 2024-10-06 10:42 | XMS_ITS | Encounter Summary ---
[facility] Address [address] [place] [address] Care Team Providers Care Talent Acquisition Lead Name Role Phone Julia Mcdaniel Primary Care Provider + Reason for Visit * Rehabilitation - Outpatient (Routine) - Authorized Specialty Diagnoses / Procedures Referred By Renata aguilar Referred To Contact Occupational Therapy Diagnoses S/P left rotator cuff repair Farrukh Rider MD 175 [facility] 160 [place] [address] Phone: tel: fax: Referral ID Status Reason Start Date Expiration Date Visits Requested Visits Authorized [id number] Authorized Specialty Services Required 06/13/2025 21 21 Encounter Details Date Type Department Care Team (Late st Contact Info) Description 09/26/2024 12:30 PM EST [facility] 175 [facility] 350 [place] [phone] Hung Lamar, OT S/P left rotator cuff [...] Progress Notes * Hung Lamar OT - 09/26/2024 12:30 PM EST [facility] - Outpatient OCCUPATIONAL THERAPY DAILY TREATMENT NOTE Date: 09/26/2024 Visit Number: 13 Patient Name: Clifford Yang : 1965 Age: 58 y.o. Gender: male Diagnosis: No diagnosis found. Date of Onset: 06/01/2024 Referring Provider: Farrukh Rider MD Insurance: Payor: [employer] PLAN / Plan: [employer] MEDICAID / Product Type: *No Product type* / Language: Speaks and understands Hebrew as preferred language with no strategic client executive required Allergies: has No Known Allergies. Precautions: Phase 4 09/07/24 - 09/21/24 begin light resistance SUBJECTIVE Subjective Report: I have something I can use at night to keep my arm like this (straight by side instead of up over head); I'll have to start using it again Pain: L sh , upper arm 7/10 OBJECTIVE Pt able to manage personal items MOD I TREATMENT INTERVENTION Procedures: Therapeutic Exercise: MHP [...] ice at end of session Pain Reassessment: decreased to 5/10 Assessment/Response To Treatment: Good Decreased pain Patient Education: Education provided: Yes Education [...] PM EST [facility] [address] [phone] Vanessa Adler, GAMBOA/L 10/12/2024 9:00 AM EST Treatment [facility] [address] [phone] Vanessa Adler, GAMBOA/L 10/17/2024 11:00 AM EST Treatment [facility] [address] [phone] Vanessa Adler, GAMBOA/L 10/19/2024 10:15 AM EST Treatment [facility] [address] [phone] Hung Lamar, OT 10/25/2024 11:00 AM EST Office Visit Internal Medicine - [place] 175 [facility] 200 [place] [phone] Julia Mcdaniel PA 175 [facility] 200 [place] [address] 11/29/2024 11:30 AM EDT Office Visit Orthopedic Surgery [facility] 160 175 [facility] 160 [place] [phone] Farrukh Rider MD [address] [address] documented as of this encounter Goals Goal [...] perform ADLs/IADLs Pt to have >= 40# hoistman to be able to perform yard work Pt to perform HEP MOD I Pt will demo improved fx'l use as evidenced by a QD score of <= 30 to be able to cook documented as of this encounter Visit Diagnoses Diagnosis S/P left rotator cuff repair- Primary documented in this encounter Care Teams Talent Acquisition Lead Relationship Specialty Start Date End Date Julia Mcdaniel PA [address] [place] [address] PCP - General Primary Care 07/03/24 documented as of this encounter
--- OUTSIDE RECORDS SUMMARY | 2024-10-06 10:42 | XMS_ITS | Encounter Summary ---
Author Organization [facility] Address [address] [place] [address] Care Team Providers Care Bitumen Plant Operator Name Role Phone Julia Mcdaniel Primary Care Provider + Reason for Visit * Reason Onset Date Comments Med Refill 08/11/2024 Encounter Details Date Type Department Care Team (Late st Contact Info) Description 08/11/2024 Telephone Internal Medicine - [place] 175 [facility] [address] [place] [phone] Julia Mcdaniel PA [address] [facility] [address] [place] [address] Med Refill Social History Tobacco Use Types Packs/Day Years [...] as of this encounter Progress Notes * LORENA Garcia - 08/11/2024 2:29 PM EST Please check with patient to see why he is requesting? * Yasemin Pérez MA - 08/11/2024 2:26 PM EST Not active on med list please advise * Linda Anton - 08/11/2024 1:18 PM EST IC GABAPENTIN 300MG documented in this encounter Plan of Treatment Upcoming Encounters Date Type Department Care Team (Late st Contact Info) Description 10/10/2024 1:15 PM EST Treatment [facility] [address] [phone] Vanessa Adler GAMBOA/L 10/12/2024 9:00 AM EST Treatment [facility] [address] [phone] Vanessa Adler GAMBOA/L 10/17/2024 11:00 AM EST Treatment [facility] [address] [phone] Vanessa Adler GAMBOA/Barry 10/19/2024 10:15 AM EST [facility] [address] [phone] Hung Lamar, SVETA 10/25/2024 11:00 AM EST Office Visit Internal Medicine - [place] 175 [facility] 200 [place] [phone] Julia Mcdaniel PA 175 [facility] 200 [place] [address] 11/29/2024 11:30 AM EDT Office Visit Orthopedic Surgery - [place] 160 175 [facility] 160 [place] [phone] Farrukh Rider MD 175 [facility] 160 [place] [address] documented as of this encounter Goals Goal [...] perform ADLs/IADLs Pt to have >= 40# cotton ball machine tender to be able to perform yard work Pt to perform HEP MOD I Pt will demo improved fx'l use as evidenced by a QD score of <= 30 to be able to cook documented as of this encounter Visit Diagnoses Not on filedocumented in this encounter Care Teams Bitumen Plant Operator Relationship Specialty Start Date End Date Julia Mcdaniel PA [address] [place] [address] PCP - General Primary Care 07/03/24 documented as of this encounter
--- OUTSIDE RECORDS SUMMARY | 2024-10-06 10:42 | XMS_ITS | Encounter Summary ---
Author Organization [employer] Address [address] [place] [address] 7 [place] [address] Care Team Providers Care Rate Quoting Operator Name Role Phone Roger Paul Primary Care Provider Unavail able Reason for Visit * Reason Comments Med Refill Encounter Details Date Type Department Care Team (Late st Contact Info) Description 08/24/2022 Refill [facility] [address] [place] [address] Kaela Lam MD [address] [place] [address] Opioid dependence, uncomplicated (CMS/HCC) Social History Tobacco Use Types Packs/Day Years Used Date Smoking Tobacco: Never Assessed Sex and Gender Information Value Date Recorded Sex Assigned at Male 06/22/2022 10:14 AM EDT Legal Sex Male 10:14 AM EDT Gender Identity Male 06/22/2022 10:14 AM EDT Sexual Orientation Straight 06/22/2022 10 :14 AM EDT documented as of this encounter Plan of Treatment Not on file documented as of this encounter Visit Diagnoses Diagnosis Opioid dependence, uncomplicated (CMS/HCC) documented in this encounter Care Teams Rate Quoting Operator Relationship Specialty Start Date End Date Roger Paul AGNP PCP - General Family Medicine 06/02/22 04/28/23 documented as of this encounter
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
--- OUTSIDE RECORDS SUMMARY | 2024-10-06 10:42 | XMS_ITS | Encounter Summary ---
Author Organization [employer] Address [address] [place] [address] Care Team Providers Care Electrical Engineering Technologist Name Role Phone Julia Mcdaniel Primary Care Provider + Reason for Visit * Reason Comments Follow-up * Imaging (Routine) - Closed Specialty Diagnoses / Procedures Referred By Renata aguilar Referred To Contact Cardiology Diagnoses Essential (primary) hypertension Coronary artery disease involving algaaciq heart with angina pectoris, unspecified vessel or lesion type (CMS/HCC) Procedures Transthoracic echocardiogram (TTE) complete with PRN contrast, bubble, strain, and 3D order panel TN TTE W 2D IMAGE COMPLETE W DOPPLER ECHO & COLOR FLOW DOPPLER ECHO TN JUDE 2D COMPLETE W/CONTRAST OR W & WO CONTRAST WITH DOPPLER Marisela Almanzar NP [address] [place] [address] Phone: tel: fax: [facility] Referral ID Status Reason Start Date Expiration Date Visits Re quested Visits Authorized [id number] Closed 06/15/2024 06/15/2025 1 1 Encounter Details Date Type Department Care Team (Latest Contact Info) Description 09/20/2024 10:30 AM EST Ancillary Procedure [facility] - [address] [place] [phone] Essential (primary) hypertension; Coronary artery disease involving algaaciq heart with angina pectoris, unspecified vessel or lesion type (CMS/HCC) Social History Tobacco Use Types Packs/Day [...] on file documented as of this encounter Last Filed Vital Signs Vital Sign Reading Time Taken Comments Blood Pressure - - Pulse - - Temperature - - Respiratory Rate - - Oxygen Saturation - - Inhaled Oxygen Concentration - - Weight 77.1 kg (170 lb) 09/20/2024 11:07 AM EST Height 167.6 cm (5' 6 ) 09/20/2024 11:07 AM EST Body Mass Index 27.44 09/20/2024 11:07 AM EST documented in this encounter Plan of Treatment Upcoming Encounters Date Type Department Care Team (Late st Contact Info) Description 10/10/2024 1:15 PM EST Treatment [facility] [address] [phone] Vanessa Adler GAMBOA/L 10/12/2024 9:00 AM EST Treatment [facility] [address] [phone] Vanessa Adler, GAMBOA/L 10/17/2024 11:00 AM EST Treatment [facility] [address] [phone] Vanessa Adler GAMBOA/L 10/19/2024 10:15 AM EST Treatment [facility] [address] [phone] Hung Lamar OT 10/25/2024 11:00 AM EST Office Visit Internal Medicine - [place] [address] [phone] Julia Mcdaniel PA [address] [address] 11/29/2024 11:30 AM EDT Office Visit Orthopedic Surgery - [place] 160 175 [facility] [address] [place] [phone] Farrukh Rider MD 175 [facility] [address] [place] [address] documented as of this encounter Goals Goal [...] perform ADLs/IADLs Pt to have >= 40# 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 to be able to perform yard work Pt to perform HEP MOD I Pt will demo improved fx'l use as evidenced by a QD score of <= 30 to be able to cook documented as of this encounter Procedures Procedure Name Priority Date/Time Associated Diagnosis Comments TRANSTHORACIC ECHOCARDIOGRAM (TTE) COMPLETE Routine 09/20/2024 11:08 AM EST Essential (primary) hypertension Coronary artery disease involving algaaciq heart with angina pectoris, unspecified vessel or lesion type (CMS/HCC) documented in this encounter Results * (ABNORMAL) TRANSTHORACIC ECHOCARDIOGRAM (TTE) COMPLETE (09/20/2024 11:08 AM EST) Left Atrium Minor [place] 4.4 cm CV PACS Left Atrium Major [place] 4.5 cm CV PACS LA Area Sys [...] Volume 76 mL CV PACS MV Deceleration [place] 1.9 m/s2 CV PACS E Wave Deceleration [...] patient in a supine position. us Marisela Almanzar NP CV ECHO PROCEDURES Fin al Result documented in this encounter Visit Diagnoses Diagnosis Essential (primary) hypertension Unspecified essential hypertension Coronary artery disease involving algaaciq heart with angina pectoris, unspecified vessel or lesion type (CMS/HCC) documented in this encounter Care Teams Electrical Engineering Technologist Relationship Specialty Start Date End Date Julia Mcdaniel PA [address] [place] [address] PCP - General Primary Care 07/03/24 documented as of this encounter
== END 2024-10-06 10:46 | disposition home or self-care (01) ==
PROVIDERS: Visit Provider Nurse Practitioner Family
DX: Z01.818 Encounter for other preprocedural examination (principal); Z12.11 Encounter for screening for malignant neoplasm of colon
CPT/HCPCS: 99202

== ENCOUNTER → 2024-10-06 10:00 | Outpatient (BNVA) | payer OTHER, SELFPAY | PROVIDERS: Visit Provider Nurse Practitioner Family | DX: Z01.818 Encounter for other preprocedural examination (principal); Z86.19 Personal history of other infectious and parasitic diseases | CPT/HCPCS: 99202 ==

== ENCOUNTER 2025-03-27 08:58 | Day surgery (SDC) | payer OTHER, SELFPAY ==
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
--- OUTSIDE RECORDS SUMMARY | 2025-02-27 08:28 | XMS_ITS | Clinical Summary ---
Author Organization [employer] Address [address] [place] [address] [address] [place] [address] Care Team Providers Care Chief Technology Officer Name Role Phone Unavailable Primary Care Provider [...] Panel 1964 SDOH Screening 1964 Sigmoidoscopy 1964 Disability Screening 1964 Alcohol/Substance Use Screening 1976 Hepatitis A Vaccines (1 of 2 - Risk 2-dose series) 1983 Pneumococcal Vaccine: 50+ Years (1 of 2 - PCV) 1983 Zoster Vaccines (1 of 2) 2014 Tobacco Screening 10/30/2023 10/29/2022 COVID-19 Vaccine (3 - 2023-2 5 season) 2024 01/23/2021, 12/26/2020 Hepatitis B Vaccines (1 of 3 - Risk 3-dose series) 2024 RSV Patients and Patients Aged 60 years or older (1 - Risk 60-74 years 1-dose series) 2024 Influenza Vaccine (#1) 2025 DTaP/Tdap/Td Vaccines (2 - T d or Tdap) 06/29/2028 06/29/2018 HIB Vaccines Aged Out No longer eligi [...]
[2025-03-23 14:37] VITALS: BMI 28.6
--- NOTE | 2025-03-26 12:21 | P.CONAN_ITS ---
Documented by User: Anai Reinoso NP 03/26/25 12:37 HPI - Anesthesia Eval Consult details Narrative: 59yo M for Colonoscopy Follows [facility] for CAD, carotid bruit, htn, venous insuff, hld. Mod 3 vessel CAD by cath 2017. Last office visit 05/2024 - pt asymptomatic and recent s/p total shoulder Suboxone daily PMFSH Active Problems Active Problems: All Active Problems Pressure in chest (Acute) Substance abuse or dependence (Acute) HTN (hypertension) (Acute) HLD (hyperlipidemia) (Acute) CAD (coronary artery disease) (Acute) Past Medical History Medical History Substance abuse or dependence HTN (hypertension) HLD (hyperlipidemia) CAD (coronary artery disease) Family History Family History Father CVD (cardiovascular disease) Mother Diabetes Sister Diabetes Surgical History Surgical History History of total replacement of left shoulder joint History of rotator cuff surgery (~06/01/24) Hx of colonoscopy (~2015) History of surgery on arm Hx of cardiac cath (~2017) Social History Social History Alcohol intake: never Patient Tobacco Use Status: Former Tobacco user Use of substances other than those prescribed or required for medical reasons: No Have you been hit, kicked, punched, or otherwise hurt by someone within the past year? If so, by whom?: No Are you DNR?: No Advance Directives: No Advance Directives Information Provided: Yes Poor oral hygiene: Yes Meds Allergies Allergy/AdvReac Type Severity Reaction Status Date / Time No Known Allergies (No Known Allergy Verified 03/27/25 09:19 Allergies*) Home Medications ?Medication ?Instructions ?Recorded ?Confirmed ?Last Taken ?Type buprenorphine 8 mg-naloxone 2 mg 20 mg sublingual MIREILLE Y 06/07/20 06/07/20 Unknown History sublingual film losartan 50 mg-hydrochlorothiazide 1 tab PO DAILY 09/2303/23/25 Unknown History 12.5 mg tablet methadone 18 PO DAILY 03/27/25 Unknow n History Exam Height,Weight and Vital Signs: Height 5 ft 5 in Weight 78.018 kg Pertinent Lab Results Pertinent Lab Results: CMP 01/2025 from [facility] Narrative Narrative: EKG 05/2024 (per office visit note) SR @ 66 Stress ECHO 12/2024 ? Post?Stress?Impression: The study is negative and shows no echocardiographic evidence of ischemia. ? Exercise stress test was performed. Patient reported chest pain during the stress test. Exercise capacity was above average. Normal blood pressure response. ? Stress: The patient reported chest pain during the stress test described as pressure 2/10 that resolved entirely in recovery. ? ECG: There is depression noted to ST segment during stress. 0.5-[address] depression noted in leads II, III, aVF and leads V4-V6. This did not correlate with significant epicardial ischemia on echo. ? Consider microvascular disease as cause of angina. ? Documented by User: Candice Quevedo MD 03/27/25 09:45 PMFSH Past Medical History Medical History Substance abuse or dependence HTN (hypertension) HLD (hyperlipidemia) CAD (coronary artery disease) Family History Family History Father CVD (cardiovascular disease) Mother Diabetes Sister Diabetes Family history of problems with anesthesia: No Surgical History Surgical History History of total replacement of left shoulder joint History of rotator cuff surgery (~06/01/24) Hx of colonoscopy (~2015) History of surgery on arm Hx of cardiac cath (~2017) History of Problems with Anesthesia: No Social History Social History Alcohol intake: never Patient Tobacco Use Status: Former Tobacco user Use of substances other than those prescribed or required for medical reasons: No Have you been hit, kicked, punched, or otherwise hurt by someone within the past year? If so, by whom?: No Are you DNR?: No Advance Directives: No Advance Directives Information Provided: Yes Poor oral hygiene: Yes Meds Allergies Allergy/AdvReac Type Severity Reaction Status Date / Time No Known Allergies (No Known Allergy Verified 03/27/25 09:19 Allergies*) Home Medications ?Medication ?Instructions ?Recorded ?Confirmed ?Last Taken ?Type buprenorphine 8 mg-naloxone 2 mg 20 mg sublingual MIREILLE Y 06/07/20 06/07/20 Unknown History sublingual film losartan 50 mg-hydrochlorothiazide 1 tab PO DAILY 09/2303/23/25 Unknown History 12.5 mg tablet methadone 18 PO DAILY 03/27/25 Unknow n History Exam Airway Mallampati Class: II TM Dist: >3cm Neck ROM: Limited Heart: rrr Lungs: cta Assessment and Plan Assessment Anesthesia Assessment: Anesthesia Plan Discussed and Chart Reviewed Final Anesthetic Review Family History of Problems with Anesthesia: No History of Problems with Anesthesia: No ASA Class: III Final Preanesthetic Review: No Changes in Pt Med Stat, Meds/Allgs Chart Reviewed, Consent Obtained/Reviewed and Anes Risks/Benef Reviewed Patient Risk: Intermediate Procedure Risk: Low Anesthetic Plan Anesthetic Plan: MAC: Disposition: Standard PACU
--- NOTE | 2025-03-27 09:18 | P.HPSUR_ITS ---
Pre-Procedural Eval Section A - 24 Hr Update-Section A only Date of Service: 03/27/25 Section B - Complete if H&P > 30 days Chief Complaint: Screening Details of Present Illness: Substance abuse or dependence HTN (hypertension) HLD (hyperlipidemia) CAD (coronary artery disease) Surgical History History of rotator cuff surgery (~06/01/24) Hx of colonoscopy (~2015) History of surgery on arm Hx of cardiac cath (~2017) Present Medications: see Short Stay Collaborative assessment Allergies: Allergies Allergy/AdvReac Type Severity Reaction Status Date / Time No Known Allergies (No Known Allergy Unverified 10/06/24 10:02 Allergies*) Review of Systems Review of Systems Comment: Ten point ROS negative Exam Exam Comment: Gen appear: No acute distress HEENT: no icterus Chest: No overt resp distress Abd: soft, nontender, nondistended Psych: Stable affect, answering questions appropriately Neuro: A/Ox3 noted to move all extremities spontaneously Ext: no peripheral edema Plan Diagnosis/Plan: Unchanged I have reviewed the history and physical and performed a pertinent physical examination on my patient. No changes have occurred unless specified. Time Spent With Patient Time: Total time managing care of this patient today ____ minutes.
[2025-03-27 09:29] VITALS: BP 169/77; PULSE 67; RESP 12; TEMP 37.1; O2SAT 98; BMI 26.4
[2025-03-27] MEDS: Lactated Ringers 1,000 ML 100 ML IVCONT (09:35)
--- NOTE | 2025-03-27 10:59 | P.OPN-COLO_ITS ---
Colonoscopy Operative Note Operative Note Date of Service: 03/27/25 Narrative: Procedure: Colonoscopy Indication: Screening Endoscopist: Adela Richardson MD Anesthesia Provider: Dr Owen Banerjee Anesthesia type: MAC Instrument: Olympus [id number]-[id number] Consent: Indication, risks vs benefits, and alternatives were discussed with the patient who gave written informed consent to proceed. EKG, pulse, pulse oximetry and blood pressure were monitored throughout the procedure. Please see anesthesia flowsheet. Procedure: The patient was brought to the procedure room and placed in the left lateral decubitus position. IV medications were administered by the anesthesia provider in attendance. A digital rectal exam was performed which was normal. A distal attachment cap was affixed to the tip of the colonoscope which was then inserted through the anus and advanced through the colon to the cecum at 70 cm, and terminal ileum. Appendiceal orifice and ileocecal valve were identified. Mucosa was carefully examined under high definition white light as the instrument was slowly withdrawn in a retrograde panoramic fashion. Retroflexion was performed in rectum. The procedure was not difficult. There were no immediate obvious complications. The quality of the prep was BBPS: 3+2+3 = adequate Withdrawal time 11 minutes. Limitations: No limitations. Findings: Mucosa: Normal to cecum and terminal ileum. Protruding lesions: * 2 sessile polyps of size 2-6 mm in descending colon. Cold snare polypectomy was performed. The polyps were completely removed and retrieved. * Medium internal hemorrhoids without stigmata of recent bleeding. Impression: 1. Normal colon and terminal ileum mucosa 2. Total of 2 polyps removed 3. Internal hemorrhoids Recommendations: - Follow path results. - Repeat colonoscopy in 7 years if polyps are adenomas.
[2025-03-27 11:00] VITALS: BP 113/64; PULSE 75; RESP 18; TEMP 36.2; O2SAT 91
[2025-03-27 11:15] VITALS: BP 135/70; PULSE 73; RESP 16; TEMP 36.2; O2SAT 95
[2025-03-27 11:30] VITALS: BP 140/63; PULSE 68; RESP 15; TEMP 36.2; O2SAT 97
== END 2025-03-27 12:10 | disposition home or self-care (01) ==
PROVIDERS: PCP Internal Medicine; Visit Provider Internal Medicine
PROC: 0DJD8ZZ Inspection of Lower Intestinal Tract, Via Natural or Artificial Opening Endoscopic (ICD-10-PCS; CPT 45378; principal; 2025-03-27 11:00)
DX: Z12.11 Encounter for screening for malignant neoplasm of colon (principal); K63.5 Polyp of colon; K64.8 Other hemorrhoids; I10 Essential (primary) hypertension; E78.5 Hyperlipidemia, unspecified; F11.20 Opioid dependence, uncomplicated; Z87.891 Personal history of nicotine dependence
CPT/HCPCS: 45385; 88305; J2003; J2704

== ENCOUNTER → 2025-03-27 08:58 | Outpatient (BNV) | payer OTHER, SELFPAY | PROVIDERS: PCP Internal Medicine; Visit Provider Internal Medicine | DX: Z12.11 Encounter for screening for malignant neoplasm of colon (principal); D12.4 Benign neoplasm of descending colon; K64.8 Other hemorrhoids | CPT/HCPCS: 45385 ==